=== PATIENT | male | born 1985 | race Caucasian/White ===

== ENCOUNTER 2021-07-24 09:44 | Emergency (ER) | payer BC ==
[2021-07-24] MEDS ORDERED: Sodium Chloride 0.9% 10 ML Syringe FLUSH PRN (11:11)
--- NOTE | 2021-07-24 11:11 | EDM.PDOC ---
ED HPI GENERAL MEDICAL PROBLEM - General Chief Complaint: Respiratory Problem Stated Complaint: COVID +/PNEUMONIA Time Seen by Provider: 07/24/21 10:49 Source of Information: Reports: Patient, RN Notes Reviewed History Limitations: Reports: No Limitations - History of Present Illness INITIAL COMMENTS - FREE TEXT/NARRATIVE: Patient with a diagnosis with COVID for least 12 days presents with wheezing work of breathing and shortness of breath. Has exertional dyspnea which is more severe he has received monoclonal antibodies a few days ago and his fevers have broke he went to the walk-in clinic however because his cough was so bad in his breathing and had chest x-ray that showed a lot of viral appearing COVID changes. Is here for further evaluation he describes his pulse oximetry has dropped under 88% at times. Currently here in the department 95-96 and after walking in place for 15 seconds his oxygenation actually went above 100 however his pulse did increase 210 his respiratory rate increased to 26. No lightheadedness or dizziness is lost about 20 pounds he describes, his taste and smell are interning however he is got nausea not feeling like he is hungry has been trying to drink plenty of fluids no burning pain or blood in the urine no abdominal pain no diarrhea no major muscle aches or pains at present. No history of any lung disease non-smoker no chest pain with breathing sleeping very well. - Related Data Allergies Allergy/AdvReac Type Severity Reaction Status Date / Time No Known Allergies Allergy Verified 07/24/21 10:12 Home Meds: Home Meds Albuterol Sulfate [Albuterol Sulfate HFA] 8.5 gm INH Q6HR #1 ea 07/24/21 [Rx] Past Medical History - Past Health History Medical/Surgical History: Denies Medical/Surgical History - Infectious Disease History Infectious Disease History: Reports: Novel Coronavirus Social & Family History - Tobacco Use Tobacco Use Status *Q: Never Tobacco User ED ROS GENERAL - Review of Systems Review Of Systems: See Below Constitutional: Reports: Fever, Chills, Fatigue, Weight Loss HEENT: Denies: Vision Change Respiratory: Reports: Shortness of Breath, Wheezing, Cough Cardiovascular: Reports: Dyspnea on Exertion. Denies: Chest Pain, Lightheadedness, PND Endocrine: Reports: Fatigue GI/Abdominal: Reports: Nausea. Denies: Abdominal Pain, Diarrhea, Vomiting Skin: Reports: No Symptoms Neurological: Reports: No Symptoms. Denies: Headache Psychiatric: Reports: No Symptoms ED EXAM, GENERAL - Physical Exam Exam: See Below Exam Limited By: No Limitations General Appearance: Alert, WD/WN, No Apparent Distress Eye Exam: Bilateral Eye: PERRL Throat/Mouth: Normal Inspection, Other (Sticky mucous membranes) Head: Atraumatic Neck: Normal Inspection, Supple, Non-Tender Respiratory/Chest: Respiratory Distress, Rhonchi Cardiovascular: Normal Peripheral Pulses, Regular Rate, Rhythm, No Edema, No JVD GI/Abdominal: Normal Bowel Sounds, Soft, Non-Tender, No Organomegaly, No Distention Back Exam: Normal Inspection Extremities: Normal Inspection, Normal Range of Motion, No Pedal Edema Neurological: Alert, Oriented, CN II-XII Intact Psychiatric: Normal Affect, Normal Mood Skin Exam: Warm #1 Interpretation EKG Date: 07/24/21 Rhythm: NSR (Reviewed EKG showing sinus rhythm rate of 76 NE 149 QRS is 77 QT corrected 439 normal EKG no acute findings.) Course - Vital Signs Text/Narrative:: Covid rule out Covid pneumonia, is currently not hypoxic however we will have her check to make sure he does not have a PE check his cardial pulmonary f unction, will see how he is doing with his white count lymphocytes C-reactive protein screen a D-dimer procalcitonin he does appear dehydrated will give him IV fluids. Last Recorded V/S: Last Vital Signs Temp 98.6 F 07/24/21 10:07 Pulse 84 07/24/21 10:07 Resp 18 07/24/21 10:07 BP 134/80 07/24/21 10:07 Pulse Ox 93 L 07/24/21 10:07 - Orders/Labs/Meds Orders: Active Orders 24 hr Category Date Time Status Peripheral IV Care [RC] . DIRECTED Care 07/24/21 11:12 Active RT Post Treatment Assessment [RC] Click to Edit Care 07/24/21 12:04 Active RT Pre-Treatment Assessment [RC] Click to Edit Care 07/24/21 12:04 Active Ang Chest [CT] Stat Exams 07/24/21 14:45 Taken PROCALCITONIN [REF] Stat Lab 07/24/21 11:40 Received Albuterol [Proventil HFA] Med 07/24/21 12:03 Active See Dose Instructions INH Q6H PRN Sodium Chloride 0.9% [Saline Flush] Med 07/24/21 11:11 Active 10 ml FLUSH ASDIRECTED PRN Peripheral IV Insertion Adult [OM.PC] Stat Oth 07/24/21 11:12 Ordered EKG 12 Lead [EK] Stat Ther 07/24/21 11:12 Ordered Medication Orders Albuterol (Albuterol 6.7 Gm Inhaler) 0 gm INH Q6H PRN PRN Reason: Shortness of Breath Last Admin: 07/24/21 15:09 Dose: 2 puff Documented by: AMIRAH Sodium Chloride (Sodium Chloride 0.9% 10 Ml Syringe) 10 ml FLUSH ASDIRECTED PRN PRN Reason: Keep Vein Open Last Admin: 07/24/21 11:45 Dose: 10 ml Documented by: RICHARD Labs: Laboratory Tests 07/24/21 07/24/21 07/24/21 Range/Units 11:40 11:40 11:40 WBC 4.55 (4.23-9.07) K/mm3 RBC 5.07 (4.63-6.08) M/mm3 Hgb 15.9 (13.7-17.5) gm/dl Hct 49.4 (40.1-51.0) % MCV 97.4 H (79.0-92.2) fl MCH 31.4 (25.7-32.2) pg MCHC 32.2 (32.2-35.5) g/dl RDW Std Deviation 47.4 H (35.1-43.9) fL Plt Count 208 (163-337) K/mm3 MPV 10.6 (9.4-12.3) fl Neut % (Auto) 68.9 H (34.0-67.9) % Lymph % (Auto) 18.2 L (21.8-53.1) % Hooker % (Auto) 12.3 H (5.3-12.2) % Eos % (Auto) 0 L (0.8-7.0) Baso % (Auto) 0.4 (0.1-1.2) % Neut # (Auto) 3.13 (1.78-5.38) K/mm3 Lymph # (Auto) 0.83 L (1.32-3.57) K/mm3 Hooker # (Auto) 0.56 (0.30-0.82) K/mm3 Eos # (Auto) 0.00 L (0.04-0.54) K/mm3 Baso # (Auto) 0.02 (0.01-0.08) K/mm3 D-Dimer, Quantitative 1.37 H (0.19-0.50) mg/L Sodium 142 (136-145) mEq/L Potassium 4.3 (3.5-5.1) mEq/L Chloride 104 (98-107) mEq/L Carbon Dioxide 30 (21-32) mEq/L Anion Gap 12.3 (5-15) BUN 13 (7-18) mg/dL Creatinine 1.1 (0.7-1.3) mg/dL Est Cr Clr Drug Dosing TNP Estimated GFR (MDRD) > 60 (>60) mL/min BUN/Creatinine Ratio 11.8 L (14-18) Glucose 106 H (70-99) mg/dL Calcium 8.5 (8.5-10.1) mg/dL Total Bilirubin 0.5 (0.2-1.0) mg/dL AST 90 H (15-37) U/L ALT 106 H (16-63) U/L Alkaline Phosphatase 61 (46-116) U/L C-Reactive Protein 1.8 H* (<1.0) mg/dL Total Protein 6.9 (6.4-8.2) g/dl Albumin 3.0 L (3.4-5.0) g/dl Globulin 3.9 gm/dL Albumin/Globulin Ratio 0.8 L (1-2) Dictation box Meds: Medications Generic Name Dose Route Start Last Admin Trade Name Freq PRN Reason Stop Dose Admin Albuterol 0 gm 07/24/21 12:03 07/24/21 15:09 Albuterol 6.7 Gm Inhaler INH 2 puff Q6H PRN Administration Shortness of Breath Sodium Chloride 10 ml 07/24/21 11:11 07/24/21 11:45 Sodium Chloride 0.9% 10 Ml Syringe FLUSH 10 ml ASDIRECTED PRN Administration Keep Vein Open Discontinued Medications Generic Name Dose Route Start Last Admin Trade Name Freq PRN Reason Stop Dose Admin Sodium Chloride 1,000 mls @ 999 mls/hr 07/24/21 11:13 07/24/21 11:45 Normal Saline IV 07/24/21 12:13 999 mls/hr ONETIME ONE Administration - Re-Assessments/Exams Free Text/Narrative Re-Assessment/Exam: 07/24/21 15:11 D-dimer 1.37 sodium 142 potassium 4.3 chloride 104 CO2 is 30 BUN 13 creatinine 1.1 GFR is normal blood sugar 106 ALT 106 AST 90 C-reactive protein 1.8 white count 4500 hemoglobin 15.9 hematocrit of 49.4 platelet count 208,016 8.9% neutrophils lymphocyte count 0.83 Viewed the results of the information from the labs with the patient. He has got an elevated D-dimer feel that they need to rule out PE in light of positive COVID and lung changes on his plain films would be indicated. His EKG otherwise looks normal doubt coronary syndrome, has not received his albuterol see if that helps but otherwise if his lungs are reasonable is been oxygenating well here anticipate will be able to discharge home with Tessalon Perles albuterol inhaler as directed, recommend continued follow-up monitoring his oxygen saturations prone therapy and Covid instructions. Departure - Departure Time of Disposition: 16:30 Disposition: Home, Self-Care 01 Condition: Good Clinical Impression: COVID - Discharge Information Prescriptions: Albuterol Sulfate [Albuterol Sulfate HFA] 8.5 gm INH Q6HR #1 ea Instructions: Prone Position Therapy, Shortness of Breath, Adult, [id number], What You Should Know About COVID-19 to Protect Yourself and Others - [facility] Referrals: Savanna Doty MD [Primary Care Provider] - Forms: ED Department Discharge Additional Instructions: Recommend phone follow-up with your primary care physician away in a week, continue to monitor your pulse oximetry and return or call your primary provider if it becomes more persistently less than 91% especially if you are short of breath or having increasing coughing. Use albuterol inhaler 2 puffs 4 times a day Tessalon Perles 1 3 times a day as needed for cough Zofran as directed as needed for nausea. Return to emergency room with any increasing work of breathing, low oxygen saturations especially less than 9091%, increasing work of breathing, persistent fever greater than 102, increasing weakness, vomiting and unable keep down fluids, fainting spell or worsening. Sepsis Event Note (ED) - Evaluation Sepsis Screening Result: No Definite Risk - Focused Exam Vital Signs: Vital Signs Temp Pulse Resp BP Pulse Ox 07/24/21 10:07 98.6 F 84 18 134/80 93 L - My Orders Last 24 Hours: My Active Orders 07/24/21 11:11 Sodium Chloride 0.9% [Saline Flush] 10 ml FLUSH ASDIRECTED PRN 07/24/21 11:12 Peripheral IV Care [RC] . DIRECTED Peripheral IV Insertion Adult [OM.PC] Stat EKG 12 Lead [EK] Stat 07/24/21 11:40 PROCALCITONIN [REF] Stat 07/24/21 12:03 Albuterol [Proventil HFA] See Dose Instructions INH Q6H PRN 07/24/21 12:04 RT Post Treatment Assessment [RC] Click to Edit RT Pre-Treatment Assessment [RC] Click to Edit 07/24/21 14:45 Ang Chest [CT] Stat - Assessment/Plan Last 24 Hours: My Active Orders 07/24/21 11:11 Sodium Chloride 0.9% [Saline Flush] 10 ml FLUSH ASDIRECTED PRN 07/24/21 11:12 Peripheral IV Care [RC] . DIRECTED Peripheral IV Insertion Adult [OM.PC] Stat EKG 12 Lead [EK] Stat 07/24/21 11:40 PROCALCITONIN [REF] Stat 07/24/21 12:03 Albuterol [Proventil HFA] See Dose Instructions INH Q6H PRN 07/24/21 12:04 RT Post Treatment Assessment [RC] Click to Edit RT Pre-Treatment Assessment [RC] Click to Edit 07/24/21 14:45 Ang Chest [CT] Stat
[2021-07-24] MEDS ORDERED: Sodium Chloride 0.9% 1,000 ML IV ONE (11:13)
[2021-07-24] MEDS ORDERED: Albuterol 6.7 GM Inhaler INH PRN (12:03)
--- NOTE | 2021-07-25 10:16 | CT ---
CT chest Technique: Multiple axial sections through the chest were obtained. Intravenous contrast was utilized. Reconstructed coronal and sagittal images were obtained. Findings: Pulmonary arteries are fairly well opacified. No filling defects are seen to indicate pulmonary embolism. Visualized upper abdominal structures show nothing acute. No pericardial thickening is seen. Thoracic aorta shows no aneurysm. Mediastinum shows no adenopathy. Lung window settings were reviewed which show scattered areas of parenchymal change throughout both sides of the chest compatible with COVID pneumonia. Bone window settings were reviewed which show mild degenerative change scattered within the spine. No acute osseous abnormality is appreciated. Impression: 1. No findings of pulmonary embolism. 2. Diffuse parenchymal changes within both lungs most likely representing COVID pneumonia. Diagnostic code #3 I agree with preliminary report from [facility], finalized on 07/24/21, 5:07 PM CDT, code 1
== END 2021-07-24 17:55 | disposition home or self-care (01) ==
LOC: JD.ED 09:44
DX: U07.1 COVID-19 (principal)
CPT/HCPCS: 36415; 71275; 80053; 84145; 85025; 85379; 86140; 93005; 94640; 99285; A9270; J7030